=== PATIENT | female | born 2005 | race Two or more races ===

== ENCOUNTER 2023-05-31 21:05 | Emergency (ER) | payer OTHER ==
[~2023-05-31] VITALS: Ht 165.1 cm; Wt 54.0 kg
[2023-06-01 00:20] LABS: HEMATOCRIT 37.6 % (36.0-45.00); HEMOGLOBIN 12.7 g/dL (12.0-15.00); MEAN CELL VOLUME 93.6 fL (80.00-100.00); MEAN CORPUSCULAR HEMOGLOBIN 31.6 pg (27.00-32.0); MEAN CORPUSCULAR HGB CONC 33.8 g/dl (32.0-36.0); PLATELET COUNT 265 K/uL (150-450); RED BLOOD COUNT 4.02 M/uL (4.00-6.00); RED CELL DISTRIBUTION WIDTH 13.1 % (11.5-14.5)
[2023-06-01 00:40] LABS: ALT/SGPT 25 U/L (12-78); AST/SGOT 19 U/L (15-37); LDH 130 U/L (84-246); PHOSPHOKINASE CREATININE 101 U/L (26-192)
[2023-06-01] MEDS ORDERED: KETO10TA2 PO (01:58)
== END 2023-06-01 02:25 | disposition home or self-care (01) ==
LOC: ER 21:06 → EMR PED 21:06
PROVIDERS: Emergency Medicine Pediatric Emergency Medicine
DX: R07.89 Other chest pain (principal)

== ENCOUNTER 2024-06-18 00:31 | Emergency (ER) | payer OTHER ==
[~2024-06-18] VITALS: Ht 165.1 cm; Wt 50.8 kg
[~2024-06-18 00:31] MED LIST: KETO10TA2 PO
== END 2024-06-18 03:31 | disposition home or self-care (01) ==
LOC: ER 00:31
DX: R10.9 Unspecified abdominal pain (principal)

== ENCOUNTER 2024-08-17 10:10 | Outpatient (CLI) | payer OTHER | END 2024-08-17 10:11 | disposition home or self-care (01) | LOC: PRENATAL 10:10 | PROVIDERS: ATTEND Obstetrics & Gynecology Maternal & Fetal Medicine | DX: O44.00 Complete placenta previa NOS or without hemorrhage, unspecified trimester (principal); Z3A.20 20 weeks gestation of pregnancy ==

== ENCOUNTER 2024-08-29 05:36 | Inpatient (IN) | payer OTHER ==
[2024-08-29] VITALS (7 sets, daily range): BP systolic 92–104; BP diastolic 49–70; O2SAT 100
[~2024-08-29] VITALS: Ht 165.1 cm; Wt 51.3 kg
[2024-08-29] MEDS ORDERED: PRENATAL TABLE1 EAC1 (05:45)
[2024-08-29] MEDS ORDERED: RINGERS SOLUTION,LACTATED 1,000 ML IV SCH (08:45)
[2024-08-29] MEDS ORDERED: CEFTRIAXONE SODIUM 1,000 MG in DEXTROSE 5 % IN WATER 100 ML IV SCH (09:00)
[2024-08-29 09:38] LABS: HEMATOCRIT 32.4 % (36.0-45.00); HEMOGLOBIN 11.1 g/dL (12.0-15.00); MEAN CELL VOLUME 93.8 fL (80.00-100.00); MEAN CORPUSCULAR HEMOGLOBIN 32.2 pg (27.00-32.0); MEAN CORPUSCULAR HGB CONC 34.3 g/dl (32.0-36.0); PLATELET COUNT 198 K/uL (150-450); RED BLOOD COUNT 3.45 M/uL (4.00-6.00); RED CELL DISTRIBUTION WIDTH 14.8 % (11.5-14.5)
[2024-08-29 09:46] LABS: URINE APPEARANCE Clear; URINE BILIRRUBIN Negative (NEGATIVE); URINE BLOOD Small; URINE COLOR Yellow; URINE GLUCOSE Negative (NEGATIVE); URINE KETONE Negative (NEGATIVE); URINE LEUKOCYTE Small; URINE NITRATE Negative; URINE UROBILINOGEN 0.2 E.U./dl
[2024-08-29 09:48] LABS: URINE BACTERIA 362.2 uL (0.0-1933); URINE EPITHELIAL CELLS 2.2 uL (0.0-38.8); URINE RBC 80.4 uL (0.0-20.8); URINE WBC 961.3 uL (0.0-23.2)
[2024-08-29 09:52] LABS: URINE CAST 0.73 uL (0.0-1.40); URINE PROTEIN 100 (NEGATIVE)
[2024-08-29 11:09] LABS: BILIRUBIN TOTAL 0.51 mg/dL (0.3-1.2); CREATININE SERUM 0.54 mg/dL (0.55-1.02); GFR 142.51; GLOBULINA 3.4 G/DL (2.4-3.5); POTASSIUM 3.97 mEq/L (3.5-5.1); TOTAL PROTEIN 6.4 gm/dL (6.4-8.2)
[2024-08-29] MEDS ORDERED: ACETAMINOPHEN 500 MG GEL..CAP PO PRN (13:15)
[2024-08-30 04:42] VITALS: BP 96/53; O2SAT 100
[2024-08-30 06:03] VITALS: BP 94/63; O2SAT 98
[2024-08-30] MEDS ORDERED: DEXTROSE 5%-WATER 100ML IV.SOLN ONE (09:34)
[2024-08-30 12:00] VITALS: BP 90/60
[2024-08-30 15:07] VITALS: BP 96/60
[2024-08-30 17:52] VITALS: BP 107/69
[2024-08-31 00:11] VITALS: BP 100/60
[2024-08-31 05:56] VITALS: BP 99/55
[2024-08-31] MEDS ORDERED: CEFTRIAXONE SODIUM 1,000 MG VIAL ONE (08:03)
[2024-08-31 08:22] VITALS: BP 110/92; O2SAT 100
[2024-08-31 13:08] VITALS: BP 101/66; O2SAT 100
[2024-08-31 16:00] VITALS: BP 106/71
[2024-09-01] VITALS: BP 92/57
[2024-09-01 08:45] VITALS: BP 95/60
[2024-09-01 16:05] VITALS: BP 102/64
[2024-09-01 21:09] VITALS: BP 101/66
[2024-09-02 01:00] VITALS: BP 99/63
[2024-09-02 08:00] VITALS: BP 93/57
[2024-09-02 17:21] VITALS: BP 96/60
[2024-09-02 20:00] VITALS: BP 92/60
[2024-09-03] VITALS: BP 103/68
[2024-09-03 04:30] VITALS: BP 90/50
[2024-09-03 08:00] VITALS: BP 100/64
[2024-09-03] MEDS ORDERED: CEFUROXIME500 MG PO (10:18)
[2024-09-03] MEDS ORDERED: CEFUROXIME250 MG PO (10:25)
== END 2024-09-03 10:42 | disposition home or self-care (01) | DRG 832 ==
LOC: OBS/DEL 05:36 → LDR 08:33 → OBS/DEL 08:33 → OB/GYN 08:33 → LDR 12:26 → OB/GYN 08-30 16:10
PROVIDERS: Obstetrics & Gynecology; ADMIT Obstetrics & Gynecology; ATTEND Obstetrics & Gynecology
PROC: 4A1HXCZ Monitoring of Products of Conception, Cardiac Rate, External Approach (ICD-10-PCS; principal; 2024-08-29)
PROC: BT43ZZZ Ultrasonography of Bilateral Kidneys (ICD-10-PCS; 2024-08-29)
DX: O23.02 Infections of kidney in pregnancy, second trimester (principal); N20.1 Calculus of ureter; Z3A.21 21 weeks gestation of pregnancy; O26.892 Other specified pregnancy related conditions, second trimester

== ENCOUNTER 2024-12-06 13:40 | Inpatient (IN) | payer OTHER ==
[~2024-12-06] VITALS: Ht 165.1 cm; Wt 62.6 kg
[2024-12-06 13:30] VITALS: BP 126/70
[~2024-12-06 13:40] MED LIST changes: +CEFUROXIME250 MG PO; +CEFUROXIME500 MG PO; +PRENATAL TABLE1 EAC1
[2024-12-06] MEDS ORDERED: CLINDAMYCIN PHOSPHATE 900 MG in DEXTROSE 5 % IN WATER 100 ML IV SCH ×2 (13:56→21:00)
[2024-12-06] MEDS ORDERED: MISOPROSTOL 25 MCG/4 ML GEL.W.APPL VAG ONE (14:00)
[2024-12-06] MEDS ORDERED: RINGERS SOLUTION,LACTATED 1,000 ML IV SCH (14:15)
[2024-12-06] MEDS ORDERED: CLINDAMYCIN PHOSPHATE 900 MG in DEXTROSE 5 % IN WATER 100 ML IV NR (15:00)
[2024-12-06 15:17] LABS: URINE APPEARANCE Cloudy; URINE BILIRRUBIN Negative (NEGATIVE); URINE BLOOD Moderate; URINE COLOR Yellow; URINE GLUCOSE Negative (NEGATIVE); URINE KETONE Negative (NEGATIVE); URINE LEUKOCYTE Small; URINE NITRATE Negative; URINE UROBILINOGEN 0.2 E.U./dl
[2024-12-06 15:18] LABS: URINE CAST 1.61 uL (0.0-1.40); URINE EPITHELIAL CELLS 21.2 uL (0.0-38.8); URINE RBC 333.0 uL (0.0-20.8); URINE WBC 633.9 uL (0.0-23.2)
[2024-12-06 15:19] LABS: BASO % 0.3 % (0.1-1.2); EOS # 0.10 (0.04-0.54); EOS % 0.9 % (0.7-7.0); LYMPH # 1.73 (1.18-3.74); LYMPH % 15.3 % (19.3-53.1); MEAN PLATELET VOLUME 11.10 fl (9.4-12.4); MONO # 0.88 (0.24-0.82); MONO % 7.8 % (4.7-12.5); NEUT # 8.50 (1.56-6.13); NEUT % 74.9 % (34.0-71.1); RED CELL DISTRIBUTION WIDTH 13.1 % (11.6-14.4)
[2024-12-06 15:22] VITALS: BP 118/76
[2024-12-06 15:37] LABS: INR 0.98
[2024-12-06 15:38] LABS: URINE BACTERIA > 9821.5 uL (0.0-1933); URINE PROTEIN 300 (NEGATIVE)
[2024-12-06 15:46] LABS: ALT/SGPT 16.0 U/L (12-78); AST/SGOT 20.0 U/L (15-37); BILIRUBIN TOTAL 0.4 mg/dL (0.3-1.2); BUN CREA RATIO 6.0 (7.0-25.0); CREATININE SERUM 0.62 mg/dL (0.55-1.02); GFR 121.51; GLOBULINA 3.6 G/DL (2.4-3.5); GLUCOSE FASTING 70.0 mg/dL (65-100); OSMOLALITY SERUM 273.0 MOSM/KG (275-295)
[2024-12-06 15:48] LABS: URINE YEAST NEGATIVE /hpf
[2024-12-06] MEDS ORDERED: OXYTOCIN 500 ML IV SCH (19:15)
[2024-12-06 19:29] VITALS: BP 119/77
[2024-12-06] MEDS ORDERED: GENTAMICIN SULFATE 40 MG/ML VIAL IV ONE (21:30)
[2024-12-06] MEDS ORDERED: ERYTHROMYCIN BASE OPHT 1GM EACH TUBE OP ONE (21:36)
[2024-12-06] MEDS ORDERED: MORPHINE SULFATE 4 MG/ML CARTRIDGE IV PRN (22:45)
[2024-12-06] MEDS ORDERED: OXYTOCIN 1,000 ML IV SCH (22:45)
[2024-12-06] MEDS ORDERED: ONDANSETRON HCL 2 MG/ML VIAL IV PRN (22:45)
[2024-12-06] MEDS ORDERED: NAPROXEN 500 MG TABLET PO PRN (22:45)
[2024-12-06] MEDS ORDERED: OXYTOCIN 10 UNITS/ML VIAL ONE (23:37)
[2024-12-07] MEDS ORDERED: ACETAMINOPHEN 325 MG TABLET PO SCH
[2024-12-07] MEDS ORDERED: MORPHINE SULFATE 4 MG/ML VIAL IV ONE ×2 (00:05→01:35)
[2024-12-07 03:04] VITALS: BP 115/75
[2024-12-07 06:27] LABS: BASO % 0.3 % (0.1-1.2); EOS # 0.02 (0.04-0.54); EOS % 0.1 % (0.7-7.0); LYMPH # 1.62 (1.18-3.74); LYMPH % 10.8 % (19.3-53.1); MEAN PLATELET VOLUME 11.00 fl (9.4-12.4); MONO # 1.48 (0.24-0.82); MONO % 9.9 % (4.7-12.5); NEUT # 11.76 (1.56-6.13); NEUT % 78.4 % (34.0-71.1); RED CELL DISTRIBUTION WIDTH 12.9 % (11.6-14.4)
[2024-12-07 08:05] VITALS: BP 99/66
[2024-12-07] MEDS ORDERED: SIMETHICONE 125 MG CAPSULE PO SCH (09:00)
[2024-12-07] MEDS ORDERED: NAPROXEN 500 MG TABLET PO SCH (09:00)
[2024-12-07 15:52] VITALS: BP 97/63
[2024-12-08 01:59] VITALS: BP 101/66
[2024-12-08 08:01] VITALS: BP 96/65
[2024-12-08 16:00] VITALS: BP 102/65
[2024-12-09] VITALS: BP 102/67
[2024-12-09] MEDS ORDERED: NAPROXEN500 MG PO (08:37)
[2024-12-09 08:59] VITALS: BP 116/77
== END 2024-12-09 14:57 | disposition home or self-care (01) | DRG 786 ==
LOC: OB/GYN 13:40 → LDR 13:40 → O/R 21:39 → OB/GYN 23:28
PROVIDERS: ADMIT Obstetrics & Gynecology; ATTEND Obstetrics & Gynecology
PROC: 4A1HXCZ Monitoring of Products of Conception, Cardiac Rate, External Approach (ICD-10-PCS; 2024-12-06)
PROC: 3E033VJ Introduction of Other Hormone into Peripheral Vein, Percutaneous Approach (ICD-10-PCS; 2024-12-06)
PROC: 3E0P7VZ Introduction of Hormone into Female Reproductive, Via Natural or Artificial Opening (ICD-10-PCS; 2024-12-06)
PROC: 10D00Z1 Extraction of Products of Conception, Low, Open Approach (ICD-10-PCS; principal; 2024-12-06 21:30)
DX: O61.0 Failed medical induction of labor (principal); O60.14X0 Preterm labor third trimester with preterm delivery third trimester, not applicable or unspecified; O42.013 Preterm premature rupture of membranes, onset of labor within 24 hours of rupture, third trimester; Z3A.36 36 weeks gestation of pregnancy; Z37.0 Single live birth